=== PATIENT | female | born 1995 | race Caucasian/White ===

== ENCOUNTER 2018-09-30 13:40 | Emergency (ER) | payer SELFPAY ==
[~2018-09-30] VITALS: Ht 162.6 cm; Wt 109.1 kg
[2018-09-30] MEDS ORDERED: PREN-18 PO (14:03)
[2018-09-30 14:39] LABS: BASOPHILS % (AUTO) 0.5 % (0.0-2.0); EOSINOPHILS % (AUTO) 1.5 % (1.0-6.0); HEMATOCRIT 35.8 % (36-46); HEMOGLOBIN 11.6 g/dL (12.0-16.0); LYMPHOCYTES # (AUTO) 1.9 K/uL (1.0-4.8); LYMPHOCYTES % (AUTO) 21.3 % (22.0-44.0); MEAN CORPUSCULAR HGB CONC 32.4 G/dL (31.0-37.0); MEAN CORPUSCULAR VOLUME 77 fL (80-100); MONOCYTES # (AUTO) 0.6 K/uL (0.1-1.0); MONOCYTES % (AUTO) 6.4 % (2.0-9.0); NEUTROPHILS # (AUTO) 6.4 K/uL (1.8-7.7); NEUTROPHILS % (AUTO) 70.3 % (40.0-70.0); PLATELET COUNT (AUTO) 204 K/uL (150-450); RED BLOOD CELL COUNT(AUTO) 4.63 MIL/uL (4.00-5.20)
[2018-09-30 18:00] VITALS: BP 126/98
== END 2018-09-30 18:15 | disposition home or self-care (01) ==
LOC: EMS 13:42
DX: O20.9 Hemorrhage in early pregnancy, unspecified (principal); Z3A.01 Less than 8 weeks gestation of pregnancy
CPT/HCPCS: 76801; 86901

== ENCOUNTER 2022-04-01 11:49 | Emergency (ER) | payer MEDICAID ==
[~2022-04-01] VITALS: Ht 165.1 cm; Wt 127.3 kg
[~2022-04-01 11:49] MED LIST: PREN-18 PO
[2022-04-01 11:51] VITALS: BP 126/88
[2022-04-01] MEDS ORDERED: DIPH25TA51 PO (12:23)
[2022-04-01] MEDS ORDERED: DiphenhydrAMINE HCL 50 MG CAPSULE PO ONE (12:30)
== END 2022-04-01 13:05 | disposition home or self-care (01) ==
LOC: EMS 11:49
DX: S50.861A Insect bite (nonvenomous) of right forearm, initial encounter (principal); W57.XXXA Bitten or stung by nonvenomous insect and other nonvenomous arthropods, initial encounter; Y93.89 Activity, other specified; Y92.89 Other specified places as the place of occurrence of the external cause; Y99.8 Other external cause status
CPT/HCPCS: 99282; Z7502; Z7610

== ENCOUNTER 2023-12-21 21:13 | Emergency (ER) | payer MEDICAID ==
[~2023-12-21] VITALS: Ht 167.6 cm; Wt 122.7 kg
[~2023-12-21 21:13] MED LIST changes: +DIPH25TA51 PO; -PREN-18 PO
[2023-12-21 21:22] VITALS: BP 134/91; PULSE 95; RESP 16; TEMP 99.2
[2023-12-21] MEDS ORDERED: D ME PO (21:30)
== END 2023-12-22 03:12 | disposition home or self-care (01) ==
LOC: EMS 21:13
DX: B08.4 Enteroviral vesicular stomatitis with exanthem (principal)
CPT/HCPCS: 99282; Z7502